=== PATIENT | male | born 1955 | race Caucasian/White ===

== ENCOUNTER 2020-09-12 07:27 | Emergency (ER) | payer BC ==
[~2020-09-12] VITALS: Ht 177.8 cm; Wt 94.3 kg
[~2020-09-12 07:27] MED LIST: AMPH10TA4; ANAS1TAB8 PO; ASPI-605 PO; BUPR100T6 PO; BUPR200T; FLUV100C PO; LISD70CA; LISI10TA5 PO; ROSU10TA2 PO; TADA5TAB2 PO
--- NOTE | 2020-09-12 07:31 | NUR ---
CAME IN FOR L FLANK PAIN x 2DAYS, 06/30 PS. , TO ER BED 9, HOOKED TO CAN OPERATOR, BP CUFF AND POX, CHANGED TO HOSP GOWN, WARM BLANKET PROVIDED, PATIENT AAOx 4, BREATHING EVEN AND UNLABORED, NAD NOTED, DR RECIO AT BEDSIDE
--- NOTE | 2020-09-12 07:50 | NUR ---
URINE SAMPLE COLLECTED AND SENT TO LAB
[2020-09-12 08:21] LABS: CALCIUM, SERUM 8.5 mg/dL (8.5-10.1); CREATININE 1.6 mg/dL (0.6-1.3); POTASSIUM 4.3 mmol/L (3.5-5.1)
[2020-09-12 08:23] LABS: BASOPHILS % (AUTO) 0.5 % (0.0-2.0); EOSINOPHILS % (AUTO) 4.6 % (0.0-6.0); HEMATOCRIT 45 % (39-51); LYMPHOCYTES # (AUTO) 1.9 /CMM (0.8-4.8); LYMPHOCYTES % (AUTO) 20.8 % (20.0-44.0); MEAN CORPUSCULAR HGB CONC 33 g/dl (31.0-36.0); MEAN CORPUSCULAR VOLUME 88 fL (80-96); MONOCYTES # (AUTO) 0.8 /CMM (0.1-1.30); MONOCYTES % (AUTO) 8.6 % (2.0-12.0); NEUTROPHILS % (AUTO) 65.5 % (43.0-81.0); PLATELET COUNT (AUTO) 182 /CMM (150-450); RED BLOOD CELL COUNT(AUTO) 5.12 MIL/uL (4.5-6.0); WHITE BLOOD COUNT (AUTO) 9.2 K/uL (4.3-11.0)
[2020-09-12 08:27] LABS: ALBUMIN 3.3 g/dL (3.4-5.0); BILIRUBIN,DIRECT 0.1 mg/dL (0.0-0.2); BILIRUBIN,TOTAL 0.5 mg/dL (0.2-1.0); TOTAL PROTEIN, SERUM 6.2 g/dL (6.4-8.2)
[2020-09-12 08:47] LABS: BILIRUBIN,URINE SMALL (NEGATIVE); BLOOD, URINE NEGATIVE Ery/uL (NEGATIVE); COLOR,URINE YELLOW (YELLOW); LEUKOCYTE ESTERASE ,URINE NEGATIVE (NEGATIVE); NITRITE, URINE NEGATIVE (NEGATIVE); PH,URINE 5.5 (5.0-8.0); PROTEIN,URINE NEGATIVE (NEGATIVE); UGLUCOSE NEGATIVE (NEGATIVE); UROBILINOGEN,URINE 0.2 EU/dL (0.2)
[2020-09-12 09:09] LABS: BACTERIA,URINE Rare /HPF (None Seen); RBC,URINE 0-2 /HPF (0-2); SQUAMOUS EPITHELIAL CELL,UR Rare /HPF (None Seen); WBC,URINE 0-2 /HPF (0-3)
[2020-09-12 09:10] LABS: MUCUS,URINE Moderate /LPF (None Seen)
--- NOTE | 2020-09-12 09:37 | NUR ---
Patient discharged to home in stable condition. Written and verbal after care instructions given. Patient verbalizes understanding of instruction.
[2020-09-12 09:38] VITALS: BP 137/88
== END 2020-09-12 09:39 | disposition home or self-care (01) ==
LOC: ER 07:28
DX: K44.9 Diaphragmatic hernia without obstruction or gangrene (principal); N28.1 Cyst of kidney, acquired; I12.9 Hypertensive chronic kidney disease with stage 1 through stage 4 chronic kidney disease, or unspecified chronic kidney disease; E11.22 Type 2 diabetes mellitus with diabetic chronic kidney disease; N18.9 Chronic kidney disease, unspecified; R10.32 Left lower quadrant pain; Z90.89 Acquired absence of other organs; Z60.2 Problems related to living alone; Z79.82 Long term (current) use of aspirin; Z79.899 Other long term (current) drug therapy
CPT/HCPCS: 36415; 80048-TC; 80076-TC; 81001; 83690-TC; 85025-TC; 87086-TC

== ENCOUNTER 2024-02-17 08:41 | Emergency (ER) | payer MEDICARE, BC ==
[~2024-02-17] VITALS: Ht 175.3 cm; Wt 94.3 kg
[~2024-02-17 08:41] MED LIST changes: -BUPR200T; +BUPR200T3; +LISI10TA29 PO; -LISI10TA5 PO
[2024-02-17 09:32] LABS: HEMOGLOBIN 16.6 g/dL (13.5-17.5)
[2024-02-17 09:36] LABS: BASOPHILS # (AUTO) 0.4 K/uL (0.0-0.2); BASOPHILS % (AUTO) 3.4 % (0.0-2.0); EOSINOPHILS # (AUTO) 0.9 K/uL (0.0-0.7); EOSINOPHILS % (AUTO) 8.9 % (0.0-6.0); HEMATOCRIT 49 % (39-51); LYMPHOCYTES # (AUTO) 1.9 K/uL (0.8-4.8); LYMPHOCYTES % (AUTO) 18.3 % (20.0-44.0); MEAN CORPUSCULAR HEMOGLOBIN 29 PG (26.0-33.0); MEAN CORPUSCULAR HGB CONC 34 g/dl (31.0-36.0); MEAN CORPUSCULAR VOLUME 87 fL (80-96); MONOCYTES # (AUTO) 0.9 K/uL (0.1-1.30); NEUTROPHILS # (AUTO) 6.2 K/uL (1.8-8.9); NEUTROPHILS % (AUTO) 60.4 % (43.0-81.0); PLATELET COUNT (AUTO) 224 K/uL (150-450); RED BLOOD CELL COUNT(AUTO) 5.66 MIL/uL (4.5-6.0); RED CELL DISTRIBUTION WIDTH 14.6 % (11.5-15.0); WHITE BLOOD COUNT (AUTO) 10.3 K/uL (4.3-11.0)
[2024-02-17 09:38] LABS: CALCIUM, SERUM 8.8 mg/dL (8.5-10.1); CARBON DIOXIDE 22 mmol/L (21-32); CHLORIDE 102 mmol/L (98-107); CREATININE 1.6 mg/dL (0.6-1.3); GLUCOSE 263 mg/dL (74-106); POTASSIUM 3.8 mmol/L (3.5-5.1); SODIUM SERUM 135 mmol/L (136-145); UREA NITROGEN, BLOOD 14 mg/dL (7-18)
[2024-02-17 09:44] LABS: ALANINE AMINOTRANSFERASE 82 U/L (12-78); ALBUMIN 3.5 g/dL (3.4-5.0); ALKALINE PHOSPHATASE 67 U/L (46-116); ASPARTATE AMINOTRANSFERASE 52 U/L (15-37); BILIRUBIN,DIRECT 0.1 mg/dL (0.0-0.2); BILIRUBIN,TOTAL 0.5 mg/dL (0.2-1.0); TOTAL PROTEIN, SERUM 7.3 g/dL (6.4-8.2)
[2024-02-17] MEDS ORDERED: IV NS 0.9% 250 ML IV ONE (10:25)
[2024-02-17] MEDS ORDERED: IOHEXOL-300 100 ML VIAL IV ONE (10:25)
[2024-02-17 10:38] LABS: INR 1.02 (0.91-1.10); PARTIAL THROMBOPLASTIN TIME 26.2 SEC (24.3-34.3); PROTHROMBIN TIME 10.8 SECS (9.2-11.1)
[2024-02-17 11:30] VITALS: BP 148/81; TEMP 98.6; O2SAT 99
== END 2024-02-17 11:30 | disposition home or self-care (01) ==
LOC: ER 08:46
DX: E11.65 Type 2 diabetes mellitus with hyperglycemia (principal); R16.0 Hepatomegaly, not elsewhere classified; I12.9 Hypertensive chronic kidney disease with stage 1 through stage 4 chronic kidney disease, or unspecified chronic kidney disease; E11.22 Type 2 diabetes mellitus with diabetic chronic kidney disease; N18.30 Chronic kidney disease, stage 3 unspecified; F32.A Depression, unspecified; E78.00 Pure hypercholesterolemia, unspecified; Z90.89 Acquired absence of other organs; Z60.2 Problems related to living alone; Z79.899 Other long term (current) drug therapy
CPT/HCPCS: 99285; 74177; 76700; 71045; 93005; 85025; 80048; 80076; 36415; 84484; 85730; 83880; J7050; Q9967

== ENCOUNTER 2025-09-13 18:05 | Inpatient (IN) | payer MEDICARE, BC ==
[~2025-09-13] VITALS: Ht 175.3 cm; Wt 130.6 kg
--- NOTE | 2025-09-13 18:11 | NUR ---
SHORTNESS OF BREATH X 2 WEEKS
[2025-09-13] MEDS ORDERED: FUROSEMIDE 40 MG/4 ML VIAL ONE (18:29)
[2025-09-13] MEDS ORDERED: ALBUTEROL FS 2.5 MG/3 ML VIAL.NEB ONE (18:31)
--- NOTE | 2025-09-13 18:35 | NUR ---
BLOOD DRAWN AND GIVEN TO LAB, 20G IV LAC
--- NOTE | 2025-09-13 18:36 | NUR ---
RT AT BEDSIDE FOR ABG AND BREATHING TREATMENT
[2025-09-13 18:37] VITALS: O2SAT 97
[2025-09-13] MEDS: ALBUTEROL FS 2.5 MG/3 ML VIAL.NEB NEB ONE (18:37)
[2025-09-13 18:39] LABS: ABG BASE EXCESS 2.0 mmol/L (-2.0-3.0); ABG OXYGEN SATURATION 96.0 % (94.0-98.0); ABG PCO2 36.3 mmHg (35.0-48.0); ABG PH 7.464 (7.350-7.450); ABG PO2 79.0 mmHg (83.0-108.0); ABG TOTAL HEMOGLOBIN 14.9 G/dL (13.5-17.5); FRACTIONATED INSPIRED OXYGEN 21.0 %; SITE, ABG RIGHT RADIAL
--- NOTE | 2025-09-13 18:40 | NUR ---
FAUZIA DRAWN AND RAN. RESULT GIVEN TO .
[2025-09-13 18:41] LABS: PLATELET COUNT (AUTO) 213 K/uL (150-450); RED BLOOD CELL COUNT(AUTO) 5.15 MIL/uL (4.5-6.0); RED CELL DISTRIBUTION WIDTH 15.8 % (11.5-15.0); WHITE BLOOD COUNT (AUTO) 8.6 K/uL (4.3-11.0)
[2025-09-13] MEDS: FUROSEMIDE 40 MG/4 ML VIAL IV ONE (18:45)
[2025-09-13 18:47] VITALS: O2SAT 98; O2SAT 99
[2025-09-13 18:53] LABS: INR 1.06 (0.91-1.10)
[2025-09-13 18:59] LABS: LACTIC ACID 1.7 mmol/L (0.4-2.0)
[2025-09-13 19:02] LABS: CALCIUM, SERUM 8.9 mg/dL (8.5-10.1); CREATININE 1.9 mg/dL (0.6-1.3); SODIUM SERUM 135 mmol/L (136-145); UREA NITROGEN, BLOOD 22 mg/dL (7-18)
[2025-09-13 19:11] LABS: ASPARTATE AMINOTRANSFERASE 34 U/L (15-37); NT-PRO BNP 224 pg/mL (0-125); TOTAL PROTEIN, SERUM 6.7 g/dL (6.4-8.2)
--- NOTE | 2025-09-13 20:05 | NUR ---
CONTACTED NURSE SUP FOR BED
[2025-09-13] MEDS ORDERED: MAGNESIUM HYDROXIDE 30 ML UDC PO PRN (21:00)
[2025-09-13] MEDS ORDERED: ALBUTEROL FS 2.5 MG/3 ML VIAL.NEB NEB PRN (21:00)
[2025-09-13] MEDS ORDERED: ONDANSETRON HCL/PF 4 MG/2 ML VIAL IVP PRN (21:00)
[2025-09-13] MEDS ORDERED: MAG HYDROX/AL HYDROX/SIMETH 30 ML UDC PO PRN (21:00)
[2025-09-13] MEDS ORDERED: ACETAMINOPHEN 325 MG TABLET PO PRN (21:00)
--- NOTE | 2025-09-13 21:13 | NUR ---
report given to Shane HERNANDEZ for rosa
--- NOTE | 2025-09-13 21:23 | NUR ---
pt transferred to 308-1 acls protocol Addendum: 09/13/25 at 2123 by ELISE pt transferred to 306-1 acls protocol
[2025-09-13 21:30] VITALS: BP 155/73; TEMP 98.1; O2SAT 98
--- NOTE | 2025-09-13 21:30 | NUR ---
MECHANIC SENIOR ADMISSION NOTE PATIENT ARRIVED TO UNIT FROM ER STABLE. PATIENT ATTENDED BY GIRLFRIEND/PARTNER. PATIENT A/OX4. NO S/S OF PAIN OR DISTRESS; BREATHING W/O DIFFICULTY ON RA. LAC #20 INTACT AND PATENT. TELE READS SR 81. VS WNL. PATIENT ORIENTED TO UNIT. PATIENT GIVEN CALL-SNIDER AND INSTRUCTED ON ITS USE. PATIENT HAD TELE MONITOR APPLIED; PATIENT EDUCATION GIVEN ON ITS ROLE IN PLAN OF CARE AND TREATMENT. PATIENT'S BELONGINGS ACCOUNTED FOR, LOGGED INTO SHEET, AND PLACED IN CHART. SAFETY MEASURES IN PLACE: BED LOCKED AND AT LOWEST POSITION, RAILS UP X2, CALL SNIDER WITHIN REACH, BED ALARM ON. WILL CONTINUE TO MONITOR PATIENT FOR SAFETY AND NEEDS.
[2025-09-13] MEDS: FUROSEMIDE 20 MG/2 ML VIAL IV SCH (21:56)
[2025-09-13] MEDS: HEPARIN SODIUM, PORCINE 5000 UNITS/1 ML VIAL SQ SCH (21:57)
[2025-09-13 23:13] VITALS: BP 156/58; TEMP 98.1; O2SAT 98
[2025-09-14] VITALS (11 sets, daily range): BP systolic 107–149; BP diastolic 62–73; TEMP 97.7–99.3; O2SAT 93–100
--- NOTE | 2025-09-14 | NUR ---
RN NOTE TELE READS SR 81
[2025-09-14] MEDS: GUAIFENESIN/D-METHORPHAN HB 5 ML UDC PO PRN (01:02)
--- NOTE | 2025-09-14 04:11 | NUR ---
DAVID JACOBS SR 64 Addendum: 09/14/25 at 0411 by MARY KEVIN RN CORRECTION: SR 80
[2025-09-14 06:00] LABS: PLATELET COUNT (AUTO) 203 K/uL (150-450); RED BLOOD CELL COUNT(AUTO) 5.17 MIL/uL (4.5-6.0); RED CELL DISTRIBUTION WIDTH 16.0 % (11.5-15.0); WHITE BLOOD COUNT (AUTO) 9.4 K/uL (4.3-11.0)
[2025-09-14 06:10] LABS: INR 1.11 (0.91-1.10)
[2025-09-14 06:17] LABS: ASPARTATE AMINOTRANSFERASE 36 U/L (15-37); CALCIUM, SERUM 8.9 mg/dL (8.5-10.1); CREATININE 2.0 mg/dL (0.6-1.3); PHOSPHORUS 3.7 mg/dL (2.5-4.9); SODIUM SERUM 141 mmol/L (136-145); TOTAL PROTEIN, SERUM 6.8 g/dL (6.4-8.2); UREA NITROGEN, BLOOD 22 mg/dL (7-18)
--- NOTE | 2025-09-14 06:54 | NUR ---
STONE SETTER METAL OPTICAL FRAMES CLOSING NOTE PATIENT RESTING IN BED. A/OX4. NO S/S OF PAIN OR DISTRESS; BREATHING WITHOUT DIFFICULTY ON RA. LAC #20 INTACT AND PATENT SL. TELE READS SR 61. SAFETY MEASURES IN PLACE: BED LOCKED AND AT LOWEST POSITION, RAILS UP X2, CALL SNIDER WITHIN REACH, BED ALARM ON. WILL ENDORSE TO JANETT HERNANDEZ FOR ASHISH. Addendum: 09/14/25 at 0655 by MARY KEVIN RN CORRECTION: WILL ENDORSE TO BAM HERNANDEZ FOR ASHISH.
--- NOTE | 2025-09-14 07:20 | NUR ---
SULFUR CHLORIDE OPERATOR OPENING NOTES: PT AWAKE IN BED. A/OX4 AND ABLE TO MAKE NEEDS KNOWN. DENIES ANY PAIN. ON RA, BREATHING EVEN AND UNLABORED, WHEEZING NOTED ON AUSCULTATION. TELE READING SR 67BPM. IV ACCESS 20G L. AC SALINE LOCKED. BED IN LOWEST POSITION, LOCKED AND SIDE RAILS UPX2. PT DENIES ANY FURTHER NEEDS.
[2025-09-14] MEDS ORDERED: PRAM1TAB3 PO (08:23)
[2025-09-14] MEDS ORDERED: SITA100T PO (08:23)
[2025-09-14] MEDS ORDERED: LOSA25TA27 PO (08:23)
[2025-09-14] MEDS ORDERED: INSU100V27 SQ (08:23)
[2025-09-14] MEDS ORDERED: INSU100V7 SQ (08:23)
[2025-09-14] MEDS ORDERED: ALBUTEROL MDI IH (08:23)
[2025-09-14] MEDS ORDERED: PIOG45TA5 PO (08:23)
[2025-09-14] MEDS ORDERED: DEXT30SU5 PO (08:23)
[2025-09-14] MEDS ORDERED: VILA40TA PO (08:23)
[2025-09-14] MEDS ORDERED: NEBI20TA2 PO (08:23)
[2025-09-14] MEDS ORDERED: HYDR12.55 PO (08:23)
[2025-09-14] MEDS ORDERED: DEXTROSE 50%-WATER 50 ML DISP.SYRIN IV PRN (09:00)
[2025-09-14] MEDS ORDERED: HOME MED MISCELLANEOUS XX SCH (09:00)
[2025-09-14] MEDS ORDERED: PIOGLITAZONE HCL 15 MG TABLET PO SCH (09:00)
[2025-09-14] MEDS: POTASSIUM CHLORIDE 20 MEQ TAB.PRT.SR PO ONE (09:29)
[2025-09-14] MEDS: ASPIRIN EC 81 MG TABLET.DR PO SCH (09:29)
[2025-09-14] MEDS: PRAMIPEXOLE DI-HCL 0.25 MG TABLET PO SCH (09:29)
[2025-09-14] MEDS: HYDROCHLOROTHIAZIDE 25 MG TABLET PO SCH (09:30)
[2025-09-14] MEDS: PANTOPRAZOLE 40 MG TABLET.DR PO SCH (09:35)
[2025-09-14] MEDS: FUROSEMIDE 40 MG/4 ML VIAL IV SCH (10:42)
[2025-09-14] MEDS: APIXABAN 5 MG TABLET PO SCH (10:43)
[2025-09-14 11:15] LABS: LDL 153.0 mg/dL (0-99)
[2025-09-14] MEDS: METOPROLOL TARTRATE 50 MG TABLET PO SCH (12:26)
[2025-09-14] MEDS: INSULIN GLARGINE, 100 UNIT/ML CARTRIDGE SQ SCH (12:29)
[2025-09-14] MEDS: BLOOD SUGAR DIAGNOSTIC 1 EACH STRIP IN SCH (12:29)
[2025-09-14] MEDS: INSULIN REGULAR, HUMAN 100 UNIT/ML 3 ML VIAL SQ PRN (12:44)
[2025-09-14] MEDS: PIOGLITAZONE HCL 15 MG TABLET PO SCH (14:30)
[2025-09-14] MEDS: ALBUTEROL FS 2.5 MG/3 ML VIAL.NEB NEB PRN (16:17)
--- NOTE | 2025-09-14 16:28 | NUR ---
RT NOTE: PRN BREATHING TX WAS GIVEN ORDERED. NO ADVERSE REACTION. RECEIVED PT ON ROOM AIR. PT AWAKE, ALERT, AND IN BED. BREATH SOUNDS AUDIBLE BILATERALLY UPON AUSCULTATION. VITAL SIGNS WITHIN NORMAL LIMITS. NO RESPIRATORY DISTRESS NOTED AT THIS TIME.
[2025-09-14] MEDS: PROSOURCE / PROSTAT (PYXIS) 30 ML UDC PO SCH (17:43)
--- NOTE | 2025-09-14 18:35 | NUR ---
MARKER HAND CLOSING NOTES: PT IN BED RESTING. A/OX4 AND ABLE TO MAKE NEEDS KNOWN. DENIES ANY PAIN. BREATHING EVEN AND UNLABORED W SLIGHT WHEEZING ON EXPIRATION. TELE READING SR 84 BPM. IV ACCESS LAC 20G SL. BED IN LOWEST POSITION, LOCKED AND SIDE RAILS UP X2. PATIENT DENIES ANY FURTHER NEEDS. WILL ENDORSE TO LOOP TACKER NURSE.
--- NOTE | 2025-09-14 19:08 | NUR ---
UKE DRIVER OPENING NOTE RECEIVED PATIENT IN BED AWAKE, A/OX4 ABLE TO MAKE NEEDS KNOWN ON ROOM AIR NO SIGNS OF SOB AND DISTRESS, IV ACCESS ON THE RIGHT AC #20G SL PATENT NAD INTACT PATIENT WITH LEARNING AND DEVELOPMENT ADMINISTRATOR IN PLACE READING SR 80 NO COMPLAINTS OF PAIN RIGHT NOW, SAFETY MEASURES MAINTAINED BED SET TO LOW AND LOCKED BED ALARM ON SIDE RAILS UPX2 PLACED CALL LIGHT BEDSIDE TABLE AND URINAL WITHIN EASY REACH PLAN OF CARE ONGOING
[2025-09-15] VITALS (15 sets, daily range): BP systolic 96–134; BP diastolic 46–73; TEMP 97.7–98.2; O2SAT 92–99
--- NOTE | 2025-09-15 06:43 | NUR ---
KILN HEAD HOUSE OPERATOR CLOSING NOTE PATIENT IN BED AWAKE, A./OX4 ABLE TO MAKE NEEDS KNOWN ON ROOM AIR NO SIGNS OF SOB AND DISTRESS IV ACCESS ON THE LEFT AC #20G SL PATENT AND INTACT PATIENT IS AMBULATORY ENCOURAGED TO USE CALL LIGHT IF IN NEED OF HELP VERBALIZED UNDERSTANDING, MARINE MECHANIC IN PLACE READING SR @ 85 ALL DUE MEDS GIVEN KEPT PATIENT CLEAN AND DRY SAFETY MEASURES MAINTAINED BED SET TO LOW AND LOCKED BED ALARM ON SIDE RAILS UPX2 PLACED CALL LIGHT AND BEDSIDE TABLE WITHIN EASY REACY WILL ENDORSE TO INCOMING NURSE FOR CONTINUITY OF CARE
[2025-09-15 06:51] LABS: PLATELET COUNT (AUTO) 214 K/uL (150-450); RED BLOOD CELL COUNT(AUTO) 4.98 MIL/uL (4.5-6.0); RED CELL DISTRIBUTION WIDTH 15.8 % (11.5-15.0); WHITE BLOOD COUNT (AUTO) 8.3 K/uL (4.3-11.0)
[2025-09-15 06:56] LABS: APPEARANCE,URINE CLEAR (CLEAR); BLOOD, URINE NEGATIVE Ery/uL (NEGATIVE); LEUKOCYTE ESTERASE ,URINE NEGATIVE (NEGATIVE); NITRITE, URINE NEGATIVE (NEGATIVE); UGLUCOSE NEGATIVE (NEGATIVE)
[2025-09-15 06:59] LABS: ASPARTATE AMINOTRANSFERASE 40.0 U/L (15-37); CALCIUM, SERUM 8.8 mg/dL (8.5-10.1); CREATININE 2.2 mg/dL (0.6-1.3); PHOSPHORUS 3.6 mg/dL (2.5-4.9); SODIUM SERUM 137.0 mmol/L (136-145); TOTAL PROTEIN, SERUM 6.6 g/dL (6.4-8.2); UREA NITROGEN, BLOOD 31.0 mg/dL (7-18)
[2025-09-15 07:03] LABS: CREATININE, URINE 59.3 MG/DL (30.0-125.0); URINE SODIUM, RANDOM 106.0 mmol/l (40-220)
[2025-09-15 07:10] LABS: EOSINOPHIL,URINE None Seen
[2025-09-15 07:27] LABS: CREATINE KINASE, TOTAL 1734.0 U/L (39-308)
--- NOTE | 2025-09-15 07:30 | NUR ---
INVESTIGATIVE ASSISTANT NOTES PT IN BED, AWAKE, ALERT AND ORIENTED, NO COMPLAINT OF PAIN, BREATHING PATTERN NORMAL, NO COMPLAINT OF SHORTNESS OF BREATH, CALL LIGHT WITHIN REACH.
[2025-09-15 08:29] LABS: URINE TOTAL PROTEIN 7.5 mg/dL (0-11.9)
[2025-09-15] MEDS: LINAGLIPTIN 5 MG TABLET PO SCH (09:27)
[2025-09-15] MEDS: POTASSIUM CHLORIDE 20 MEQ TAB.PRT.SR PO ONE (09:30)
[2025-09-15] MEDS: ATORVASTATIN 40 MG TABLET PO SCH (09:31)
[2025-09-15] MEDS ORDERED: POTASSIUM CHLORIDE 20 MEQ TAB.PRT.SR PO SCH (10:00)
--- NOTE | 2025-09-15 17:13 | NUR ---
RT NOTE: GAVE PT Q4 PRN BTX FOR RESPIRATORY WHEEZ. SAT WITHIN NORMAL LIMITS. NO SOB/RDS NOTED.
--- NOTE | 2025-09-15 18:49 | NUR ---
RN MS NOTES PT AWAKE, ALERT AND ORIENTED, SITTING IN BED, EATING DINNER, NO COMPLAINT OF SHORTNESS OF BREATH, BREATHING TREATMENT GIVEN BY RT ORDERED, PM MEDS GIVEN ORDERED, OLD IV SITE AT LEFT A/C INFILTRATED, INSERTED NEW IV AT RIGHT FOREARM, TOLERATED WELL AND WITH GOOD BLOOD RETURN, DUE MEDS GIVEN ORDERED, ALL NEEDS ATTENDED.
--- NOTE | 2025-09-15 19:55 | NUR ---
MS RN OPENING NOTES PATIENT IS AWAKE IN BED RESTING. A/O X4, PATIENT IS ABLE TO MAKE NEEDS KNOWN. NO S/S OF PAIN NOTED AT THIS TIME. PATIENT IS ON ROOM AIR, BREATHING EVEN AND UNLABORED, NO DISTRESS OR SHORTNESS OF BREATH NOTED. IV ACCESS R FORE ARM # 20G, INTACT, PATENT, SL. FALL AND SAFETY MEASURES IMPLEMENTED PER UNIT PROTOCOL. CALL LIGHT AND TABLE WITHIN EASY REACH. WILL CONTINUE TO MONITOR THE PATIENT.
[2025-09-16] VITALS (9 sets, daily range): BP systolic 122; BP diastolic 62; TEMP 97.9; O2SAT 91–99
--- NOTE | 2025-09-16 04:29 | NUR ---
RT NOTE RT called to bedside for PRN tx, pt recvd awake and sitting up in bed on room air. Neb tx given and leni well. No respiratory distress noted at this time.
--- NOTE | 2025-09-16 07:01 | NUR ---
MS RN CLOSING NOTES PATIENT IS AWAKE IN BED RESTING. A/O X4, PATIENT IS ABLE TO MAKE NEEDS KNOWN. NO S/S OF PAIN NOTED AT THIS TIME. PATIENT IS ON ROOM AIR, BREATHING EVEN AND UNLABORED, NO DISTRESS OR SHORTNESS OF BREATH NOTED. IV ACCESS R FORE ARM # 20G, INTACT, PATENT, SL. ALL NEEDS ARE MET. ALL MEDICATION GIVEN. PATIENT REQUEST RT, RT CALLED. FALL AND SAFETY MEASURES IMPLEMENTED PER UNIT PROTOCOL. CALL LIGHT AND TABLE WITHIN EASY REACH. WILL ENDORSE TO MORNING SHIFT NURSE.
--- NOTE | 2025-09-16 07:20 | NUR ---
ms rn received on bed, awake,alert,oriented x4, came in with a fib new onset, awake,alert,oriented x4,on room air, no fever no nausea,tolerating dioet well. will momnitor patient's condition. ambulatory
[2025-09-16 07:47] LABS: PLATELET COUNT (AUTO) 216 K/uL (150-450); RED BLOOD CELL COUNT(AUTO) 4.96 MIL/uL (4.5-6.0); RED CELL DISTRIBUTION WIDTH 15.9 % (11.5-15.0); WHITE BLOOD COUNT (AUTO) 12.7 K/uL (4.3-11.0)
[2025-09-16 07:51] LABS: ASPARTATE AMINOTRANSFERASE 47.0 U/L (15-37); CALCIUM, SERUM 8.7 mg/dL (8.5-10.1); CREATININE 2.2 mg/dL (0.6-1.3); PHOSPHORUS 2.3 mg/dL (2.5-4.9); SODIUM SERUM 135.0 mmol/L (136-145); TOTAL PROTEIN, SERUM 6.9 g/dL (6.4-8.2); UREA NITROGEN, BLOOD 33.0 mg/dL (7-18)
[2025-09-16] MEDS ORDERED: METH4TAB3 PO (09:16)
[2025-09-16] MEDS ORDERED: ALBU8.5H8 INH (09:16)
[2025-09-16] MEDS ORDERED: APIX5TAB PO (09:16)
--- NOTE | 2025-09-16 09:20 | NUR ---
ms rn was seen by primary doctor, due meds given , patient to de discharge today.
[2025-09-16 10:11] LABS: PTH, INTACT 51 pg/mL (15-65)
--- NOTE | 2025-09-16 11:30 | NUR ---
ms yarn conditioner instructions given and understood, family here, patient went darya w/ prescriptions sent to [facility] of choice, all needs attended.
[2025-09-16] MEDS ORDERED: K PHOS NEUTRAL 250 MG TABLET PO ONE (16:00)
[2025-09-20 09:10] LABS: *SPE A/G RATIO 1.2 (0.7-1.7); *SPE ALBUMIN 3.3 g/dL (2.9-4.4); *SPE ALPHA-1-GLOBULIN 0.2 g/dL (0.0-0.4); *SPE ALPHA-2-GLOBULIN 0.9 g/dL (0.4-1.0); *SPE BETA GLOBULIN 1.0 g/dL (0.7-1.3); *SPE GLOBULIN, TOTAL 2.8 g/dL (2.2-3.9); *SPE M-SPIKE Not Observed g/dL (Not Observed); *SPE PROTEIN TOTAL 6.1 g/dL (6.0-8.5); *SPEGAMMA GLOBULIN 0.6 g/dL (0.4-1.8)
== END 2025-09-16 11:48 | disposition home or self-care (01) | DRG 308 ==
LOC: ER 18:07 → TELE 20:53 → MED 09-15 09:30
PROVIDERS: ADMIT Nurse Practitioner Family; ATTEND Nurse Practitioner Acute Care
DX: I48.0 Paroxysmal atrial fibrillation (principal); I50.33 Acute on chronic diastolic (congestive) heart failure; J96.00 Acute respiratory failure, unspecified whether with hypoxia or hypercapnia; N17.0 Acute kidney failure with tubular necrosis; J90 Pleural effusion, not elsewhere classified; Z79.01 Long term (current) use of anticoagulants; E44.1 Mild protein-calorie malnutrition; I13.0 Hypertensive heart and chronic kidney disease with heart failure and stage 1 through stage 4 chronic kidney disease, or unspecified chronic kidney disease; E11.22 Type 2 diabetes mellitus with diabetic chronic kidney disease; F32.A Depression, unspecified; N18.30 Chronic kidney disease, stage 3 unspecified; E66.01 Morbid (severe) obesity due to excess calories; E03.8 Other specified hypothyroidism; K76.0 Fatty (change of) liver, not elsewhere classified; E87.1 Hypo-osmolality and hyponatremia; K51.90 Ulcerative colitis, unspecified, without complications; Z68.41 Body mass index [BMI] 40.0-44.9, adult; I25.10 Atherosclerotic heart disease of native coronary artery without angina pectoris; Z87.19 Personal history of other diseases of the digestive system; Z98.890 Other specified postprocedural states; N40.1 Benign prostatic hyperplasia with lower urinary tract symptoms; R35.1 Nocturia; F90.9 Attention-deficit hyperactivity disorder, unspecified type; E78.5 Hyperlipidemia, unspecified; Z90.49 Acquired absence of other specified parts of digestive tract; Z79.82 Long term (current) use of aspirin; Z79.899 Other long term (current) drug therapy; E88.09 Other disorders of plasma-protein metabolism, not elsewhere classified; R60.9 Edema, unspecified; G47.33 Obstructive sleep apnea (adult) (pediatric); E87.6 Hypokalemia; K57.30 Diverticulosis of large intestine without perforation or abscess without bleeding; M89.8X9 Other specified disorders of bone, unspecified site; Z79.51 Long term (current) use of inhaled steroids
CPT/HCPCS: 36415; 36600; 71045-TC; 71250-TC; 76770-TC; 80048-TC; 80053-TC; 80061-TC; 80076-TC; 82550-TC; 82553; 82570-TC; 82803-TC; 82962-TC; 83605-TC; 83735-TC; 83880; 83970; 84100-TC; 84155; 84165; 84300-TC; 84439-TC; 84443-TC; 84484-TC; 85025-TC; 85378-TC; 85610-TC; 85730-TC; 87040-TC; 93307-TC; 93970-TC; 94760-TC; 94799-TC; G0378; J1644; J1815; J1938; J2919